=== PATIENT | male | born 2000 | race Caucasian/White ===

== ENCOUNTER 2025-06-18 09:10 | Outpatient (AMB) | payer OTHER, SELFPAY ==
--- OUTSIDE RECORDS SUMMARY | 2025-06-18 09:13 | XMS_ITS | Clinical Summary ---
Author Organization [facility] Address [address] [place] [address] Care Team Providers Care Rigger Up Name Role Phone Unavailable Primary Care Provider Unavailabl e Allergies Active Allergy Reactions Criticality Noted Date Comments Amoxicillin 07/30/2019 Medications No known medications Immunizations Immunization Administration Dates Next Due COVID-19, mRNA (Moderna Pre Fall 2022) Monovalent, 100 mcg/0.5 ml or 50 mcg/0.25 ml dose 11/21/2020,10/22/2020 HPV9 (Gardasil 9) 08/15/2016,08/08/2015 Influenza,injectable,MDCK, Prsrv Fr,Quad 017 Influenza,live,intranasal,quad 08/08/2015 Meningococcal ACWY (Menactra) 03/22/2020 Tdap 03/22/2020 Social History Tobacco Use Types Packs/Day Years Used Date Smoking Tobacco: Never Smokeless Tobacco: Former Chew Intimate Partner Violence Answer Date R ecorded Fear of Current or Ex-Partner Not on file Emotionally Abused Not on file 03/14/2023 Physically Abused Not on file 03/14/2023 Sexually Abused Not on file 03/14/2023 Feel Safe at Home Not on file 03/14/2023 Sex and Gender Information Value Date Recorded Sex Assigned at Not on file Legal Sex Male 1:45 PM EST Gender Identity Not on file Sexual Orientation Not on file Last Filed Vital Signs Vital Sign Reading Time Taken Comments Blood Pressure 127/75 07/30/2019 1:50 PM EST Pulse 77 07/30/2019 1:50 PM EST Temperature 37.1 C (98.8 F) 07/30/2019 1:50 PM EST Respiratory Rate 18 07/30/2019 1:50 PM EST Oxygen Saturation 98% 07/30/2019 1:50 PM EST Inhaled Oxygen Concentration - - Weight - - Height - - Body Mass Index - - Plan of Treatment Health Maintenance Due Date Last Done Comments Hepatitis C Screening 1999 HPV Vaccine (3 - Male 3-dose series) 11/07/2016 08/15/2016, 08/08/2015 Hep B (1 of 3 - 19+ 3-dose series) 2018 COVID-19 Vaccine (3 - 2024-2 6 season) 2025 11/21/2020, 10/22/2020 Influenza (#1) 2025 08/15/2016, 08/08/2015 DTaP/Tdap/Td (2 - Td or Tdap) 03/22/2030 03/22/2020 Zoster (Shingrix) (1 of 2) 2049 Meningococcal ACWY Aged Out 03/22/2020 No longer eligible based on patient's age to complete this topic Hep A Aged Out No longer eligi ble based on patient's age to complete this topic Hib Aged Out No longer eligi ble based on patient's age to complete this topic Pneumococcal Aged Out No longer eligi ble based on patient's age to complete this topic Insurance [employer]
--- OUTSIDE RECORDS SUMMARY | 2025-06-18 09:13 | XMS_ITS | Clinical Summary ---
Author Organization [facility] Address [address] [place] [address] Care Team Providers Care Road Passenger Firer Name Role Phone Paloma Batista MD Primary Care Provider [phone] Social History Tobacco Use Types Packs/Day Years Used Date Smoking Tobacco: Never Assessed Sex and Gender Information Value Date Recorded Sex Assigned at Not on file Legal Sex Male 10:41 AM EDT Gender Identity Not on file Sexual Orientation Not on file Plan of Treatment [place] [id number] Firer Relationship Specialty Start Date End Date Paloma Batista MD [address] [place] [address] PCP - General Audit Practice Intern 01/03/22
--- OUTSIDE RECORDS SUMMARY | 2025-06-18 09:13 | XMS_ITS | Clinical Summary ---
Author Organization [employer] [facility] Address [address] [facility] [place] [address] Care Team Providers Care Clock Repairer Name Role Phone No, Pcp MEDICAL DEVICE ENGINEER Primary Care Provider Unavailabl e Allergies Active Allergy Reactions Criticality Noted Date Comments Amoxicillin Rash Low 07/24/2018 Medications No known medications Social History Tobacco Use Types Packs/Day Years Used Date Smoking Tobacco: Never Smokeless Tobacco: Former Tobacco Cessation:Counseling Given: Yes Sex and Gender Information Value Date Recorded Sex Assigned at Not on file Legal Sex Male 10:05 AM EDT Gender Identity Not on file Sexual Orientation Not on file Last Filed Vital Signs Vital Sign Reading Time Taken Comments Blood Pressure 130/80 07/24/2018 7:26 PM EST Pulse 64 07/24/2018 7:26 PM EST Temperature 37.6 C (99.6 F) 07/24/2018 7:26 PM EST Respiratory Rate 16 07/24/2018 7:26 PM EST Oxygen Saturation 98% 07/24/2018 7:26 PM EST Inhaled Oxygen Concentration - - Weight - - Height - - Body Mass Index - - Plan of Treatment Not on file Medical Devices Not on file Insurance [employer] Care Teams Clock Repairer Relationship Specialty Start Date End Date No, Pcp, MEDICAL DEVICE ENGINEER N/A Do not use PCP - General Family Medicine 07/24/18
--- OUTSIDE RECORDS SUMMARY | 2025-06-18 09:13 | XMS_ITS | Clinical Summary ---
Author Organization [facility] Address [address] [address] Phone Care Team Providers Care Tax Advisor Name Role Phone Unknown, Unknown Primary Care Provider Pastor prado Allergies Active Allergy Reactions Criticality Noted Date Comments Amoxicillin Hives High 05/19/2008 Medications No known medications Active Problems Problem Noted Date Diagnosed Date Intranasal mass 12/28/2020 Nasal obstruction 12/28/2020 Epistaxis 12/28/2020 Nevus sebaceous 05/30/2020 Encounter for general adult medical examination without abnormal findings 10/21/2017 Assessment & Plan (03/23/2020 2:10 PM EDT): Good interval growth and development, reviewed high risk behaviors. Makes good decisions. 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 Assessment & Plan (03/23/2020 2:11 PM EDT): Recommended seeing life skills consultant for warts for removal as well as having them look at nevus on scalp given irritated appearance which he says never bleeds Immunizations Immunization Administration Dates Next Due COVID-19 (Pre-05/13) Moderna Vaccine, mRNA, PF 11/21/2020,10/22/2020 DTP 06/29/2003, 1,01/03/2000,11/21,1999 HPV, unspecified formulation 06/28/2014 HPV9 08/15/2016,08/08/2015 Hepatitis A, Unspecified 06/24/2013,10/29/2011 Hepatitis B, unspecified formulation 03/20/2000, 1999,1999 Hib, unspecified formulation 09/18/2000, 01/03/2000,1999,09/24 Influenza Quadrivalent Intranasal 08/08/2015 Influenza Quadrivalent MDCK Preservative Free IM 08/15/2016 Influenza, Unspecified Formulation 06/28,06/24/2013,09/04/2010,07/04 MMR 06/29/2004,06/18/2000 Meningococcal MCV4P 03/22/2020 Meningococcal MPSV4 09/04/2010 Pneumococcal, Unspecified Formulation 09/18/2000 ,03/20/2000 Polio, Unspecified Formulation 3,03/20/2000,1999,09/24 Td, unspecified formulation 09/04/2010 Tdap 03/22/2020 Varicella 06/14/2009,06/18/2000 Social History Tobacco Use Types Packs/Day Years Used Date Smoking Tobacco: Former Smokeless Tobacco: Never Education Answer Date Recorded Are you interested in more education? Not on maria luz e 11/16/2022 Are you concerned about learning? Not on file 11/16/2022 No 11/16/2022 No 11/16/2022 Digital Access Answer Date Recorded No 12/18/2022 No 12/18/2022 No 12/18/2022 Reliable internet access at home? Not on file 12/18/2022 Device with a working camera? Not on file Sex and Gender Information Value Date Recorded Sex Assigned at Male 05/06/2020 12:38 PM EDT Legal Sex Male 4:09 PM EST Gender Identity Male 05/06/2020 12:38 PM EDT Sexual Orientation Straight 05/06/2020 12 :38 PM EDT Last Filed Vital Signs Vital Sign Reading Time Taken Comments Blood Pressure 120/76 12/07/2020 8:36 AM EDT Pulse 78 12/28/2020 9:36 AM EDT Temperature 36.4 C (97.5 F) 02/01/2021 10:21 AM EDT Respiratory Rate 16 02/01/2021 10:21 AM EDT Oxygen Saturation 98% 12/28/2020 9:36 AM EDT Inhaled Oxygen Concentration - - Weight 75.8 kg (167 lb) 12/07/2020 8:36 AM EDT Height 166.4 cm (5' 5.51 ) 03/22/2020 2:41 PM ED T Body Mass Index 27.36 03/22/2020 2:41 PM EDT Plan of Treatment Health Maintenance Due Date Last Done Comments DEPRESSION SCREENING 2011 SMOKING Hx and SMOKELESS TOBACCO SCREENING 2012 HEPATITIS C SCREENING 2017 HIV ONE-TIME SCREENING (18-65 YEARS) 2017 INFLUENZA VACCINE (#1) 2025 2, 08/11/2021, 08/15/2016, Additional history exists COVID-19 VACCINE ( season) 2025 11/21/2020, 10/22/2020 Adult Td,Tdap Booster 09/14/2031 09/14/2021 , 03/22/2020, 09/04/2010 HIB VACCINES Completed 09/18/2000, 12/20, 1999, Additional history exists PNEUMOCOCCAL VACCINES (0-49 years) Aged Out 09/18/2000, 03/20/2000 No longer eligibl e based on patient's age to complete this topic HEPATITIS A VACCINES Completed 06/24/2013, 10/29/19 12 HPV VACCINES Completed 08/15/2016, 07/22, 06/28/2014 MENINGOCOCCAL VACCINES (ACWY) Aged Out 09/14/2021, 03/22/2020, 09/04/2010 No longer eligible based on patient's age to complete this topic MENINGOCOCCAL VACCINES (B) Aged Out N o longer eligible based on patient's age to complete this topic Medical Devices Not on file Care Teams Tax Advisor Relationship Specialty Start Date End Date Unknown, Unknown, PCP - General 10/24/22 Additional Source Comments The information contained in this document represents components of the legal health record. It is not the complete legal health record.[facility]
--- NOTE | 2025-06-18 09:31 | AM.OFFWIN_ITS ---
Intake Vital Signs 06/18/25 09:36 Height 5 ft 6 in Weight 133 lb BMI 21.5 BP 122/64 Blood Pressure Location Lt brachial Position Sitting Pulse 63 Pulse Source Pulse Oximeter Temp 97.9 F Temp Source Oral Pulse Oximetry (%) 97 Oxygen Delivery Method Room Air Intake Visit Reasons: EP right eye irritation Intake Note: pt presents with right eye irritation and redness, states feels like something is stuck in his eye- s/s began this morning Allergies amoxicillin Allergy (Severe, Verified 06/18/25 09:39) Anaphylaxis Do you need a note to return to daycare/school/sports/work: Yes HPI HPI Comments History of Present Illness Details History of Present Illness The patient is a 25 year old individual presenting with right eye pain. - The patient reports the onset of right eye symptoms this morning at work, characterized by a sensation of a foreign body in the eye. - The patient attempted to rinse the eye at an eyewash station and looked for a foreign body but could not see anything. - Prior to this visit, the patient was s een at another urgent care where the eye was numbed and stained, but a full examination was not completed due to a lack of blue light - Patient reports the topical numbing dr ops helped ease the pain for a short amount of time - The patient notes that bright lights w orsen the pain. - The patient denies any changes in visi on and does not wear contact lenses or glasses. - The patient is allergic to amoxicillin . Review of Systems - Eyes: Reports right eye pain, a foreig n body sensation, burning, and photophobia. Denies any visual changes Physical Exam General Appearance: Normal appearance, well developed. No acute distress. Eyes: PEERLA. EOM intact. Right conjunctival injection noted with clear watery drainage. Eyelids inverted, No obvious FB noted. Fluroscein staining did not reveal any uptake. Pulmonary: No respiratory distress. Clear to auscultation bilaterally. Speaking in full sentences Musculoskeletal: Moving all extremities spontaneously and against gravity. Mental Status: Alert and Oriented x 3. Psychiatric: Normal mood. Normal affect. Physical Exam Vital Signs: Last Vital Signs Temp 97.9 F 06/18/25 09:36 Pulse 63 06/18/25 09:36 BP 122/64 06/18/25 09:36 Pulse Ox 97 06/18/25 09:36 Oxygen Delivery Method Room Air 06/18/25 09:36 BMI result Body Mass Index 21.5 Office Procedures Fluorescein eye exam Details: No corneal abrasion visualized Assessment & Plan Assessment & Plan (1) Discomfort of right eye: Code(s): H57.11 - Ocular pain, right eye Plan Patient presents with foreign body sensation of the right eye. He denies any vision changes. No FB visualized on exam. As patient already had topical anesthetics placed at another urgent care care, fluorescein staining was performed which did not show any uptake. However, as symptoms sound consistent with a microscopic corneal abrasion based on foreign body sensation and improvement in pain with topical anesthetics, Erythromycin ointment prescribed.?Reviewed proper administration and possible side effects of medication. Discussed cool compresses to help with pain relief and OTC medication such as tylenol. Advised prompt medical evaluation if no improvement in symptoms, worsening pain, excessive tearing, or changes in vision. Patient was informed and verbally consented to the use of an ambient scribe for clinic note documentation during the visit. Orders: Orders AMB Fluorescein eye exam 06/18/25 S05.01XA - Injury of conjunctiva and corneal abrasion without foreign body, right eye, initial encounter Medications: New erythromycin Apply to right eye 4 times a day while awake 0.5 inches ophthalmic (eye) QID 3.5 grams 0RF 5 days Coding Level of Care Code New Pt Level 3 (80539) Diagnoses Discomfort of right eye H57.11
[2025-06-18 09:36] VITALS: BP 122/64; PULSE 63; TEMP 36.6; O2SAT 97; BMI 21.5
== END 2025-06-18 10:08 | disposition home or self-care (01) ==
PROVIDERS: Visit Provider Family Medicine
DX: H57.11 Ocular pain, right eye (principal)

== ENCOUNTER → 2025-06-18 09:10 | Outpatient (BNVA) | payer SELFPAY | PROVIDERS: Visit Provider Family Medicine | DX: H57.11 Ocular pain, right eye (principal); S05.01XA Injury of conjunctiva and corneal abrasion without foreign body, right eye, initial encounter; X58.XXXA Exposure to other specified factors, initial encounter; Y93.9 Activity, unspecified; Y92.9 Unspecified place or not applicable; Y99.9 Unspecified external cause status | CPT/HCPCS: 99202 ==